=== PATIENT | female | born 1965 | race Caucasian/White ===

== ENCOUNTER 2017-06-10 15:35 | Inpatient (IN) | payer SELFPAY ==
--- NOTE | 2017-06-10 15:52 | HP ---
SUPERVISING PHYSICIAN: Chris Harrison M.D. CHIEF COMPLAINT: Generalized abdominal pain. HISTORY OF PRESENT ILLNESS: This is a 51 year-old female patient who saw her primary care physician, Dr. Harrison, about 1 week ago for generalized abdominal pain. Over the last week she has seen him another time as well as had some lab work done. She had a white count of 14.4 and an abdominal ultrasound was done. She saw Dr. Harrison today in clinic to go over her results. Her abdominal ultrasound report per radiology interpretation shows: 1. Gallbladder is contracted with a 1.6 cm stone. No wall thickening or fluid. Tender during scanning, possible cholecystitis. Common bile duct is dilated. No ascites. 2. Steatosis of the liver with no intrahepatic biliary dilation. Smooth capsule. Spleen is unremarkable and pancreas is negative. 3. Bilateral kidneys are unremarkable on ultrasound. Dr. Harrison called Dr. Bernard who suggested that if she could tolerate oral medication she could take po Flagyl and Levaquin at home. If she was unable to or she was having pain, she should be admitted to the hospital for IV fluids as well as IV antibiotics. She was a direct admission from Dr. Harrison's office. PAST MEDICAL HISTORY: 1. Degenerative disc disease. 2. Type 2 diabetes mellitus on oral therapy. 3. Breast cancer diagnosed in 2007. 4. Gastroesophageal reflux disease. 5. Hyperlipidemia. 6. Hypertension. PAST SURGICAL HISTORY: 1. Appendectomy. 2. Bilateral breast reduction. 3. section. 4. Bilateral tubal ligation. CURRENT MEDICATIONS: ALLERGIES: BETADINE, CODEINE SULFATE, DARVOCET, DARVON, DIOVAN, VALIUM, VICODIN. FAMILY HISTORY: Father at age 76 due to coronary artery disease. Mother has hyperlipidemia and low Vitamin D and B12. Brother has diabetes mellitus. Son has rickets. Daughter has Vitamin D and Vitamin B12 deficiency. SOCIAL HISTORY: She lives in [place]. She is . She has 4 children. She currently smokes about 1 pack of cigarettes per day and has for over 30 years. She denies any ETOH or illicit drug use. REVIEW OF SYSTEMS: GENERAL: Negative for chills, fatigue, fever or unintentional weight loss or gain. HEENT: Negative for ear pain, vision disturbances, sore throat or sinus symptoms. RESPIRATORY: Negative for coughing, dyspnea or wheezing. CARDIOVASCULAR: Negative for chest pain, tachycardia or palpitations. GASTROINTESTINAL: Positive for abdominal pain that radiates to the upper right flank area. Also positive for diarrhea. Negative for nausea, vomiting or constipation. GENITOURINARY: Negative for hematuria, dysuria and nocturia. SKIN: Negative for lesions or rashes. NEUROLOGIC: Negative for dizziness, headaches or seizures. PHYSICAL EXAMINATION: VITAL SIGNS: Temperature 97.7, pulse rate 86, blood pressure 150/94, respiratory rate 12, O2 sat is 97% on room air. GENERAL: This is a 51 year-old female patient who is lying in her hospital bed. She is in no acute distress. HEENT: Normocephalic and atraumatic. Pupils are equal and reactive. Oropharynx is clear. NECK: Supple without mass. RESPIRATORY: Essentially clear to auscultation bilaterally. CHEST: There is equal rise and fall of the chest with inspiration and expiration. CARDIOVASCULAR: Regular rate and rhythm. GASTROINTESTINAL: Abdomen is soft, nondistended. It is slightly tender to the right upper quadrant that radiates around to the right upper back. Bowel sounds are positive. EXTREMITIES: No cyanosis, clubbing or edema. NEUROLOGIC: She is awake, alert and oriented times three. LABORATORY: WBCs are 15,000, hemoglobin 15, hematocrit 44.4. Sodium 136, potassium 3.5, chloride 100, BUN 8, creatinine 0.80. Serum osmolality 270. Liver enzymes are within normal limits. We are still awaiting a urinalysis. Blood cultures are pending. RADIOLOGY: Her sonogram report is as per History of Present Illness. All other labs and films have been reviewed via the EMR. ASSESSMENT: 1. Cholelithiasis with an elevated WBC and right upper quadrant abdominal pain. 2. Gastroesophageal reflux disease. 3. Hypertension. 4. Hyperlipidemia. 5. Diabetes mellitus type 2. 6. Low back pain. 7. History of tobacco abuse. PLAN: We will admit the patient to the hospital. We will start her on IV Flagyl and Levaquin. Repeat her labs in the morning. I have also ordered Accu- Cheks every 6 hours with sliding scale insulin. She will be on bowel rest and NPO overnight. I have given her a nicotine patch. I have started her on a PPI for ulcer prophylaxis. Her SCDs will be for DVT prophylaxis. Hopefully tomorrow morning we can advance her diet and if she tolerates food and liquids, we can hopefully send her home tomorrow afternoon with p.o. antibiotics. She has a followup with Dr. Harrison on Thursday. In the meantime, we will continue to monitor the patient closely and followup as needed. Dr. Harrison is the collaborating physician available for consultation. #[id number] [facility]
[2017-06-10] MEDS ORDERED: ACETAMINOPHEN SUPPOSITORY 650 MG PR PRN (16:20)
[2017-06-10] MEDS ORDERED: MORPHINE SULFATE INJ 10 MG/ML VIAL IV PRN (16:20)
[2017-06-10] MEDS ORDERED: DEXTROSE 50% 25 GM/50 ML SYG IV PRN (16:24)
[2017-06-10] MEDS ORDERED: GLUCAGON INJ 1 MG VIAL SUBCU PRN (16:24)
[2017-06-10] MEDS ORDERED: ENOXAPARIN SODIUM 40 MG/0.4 ML SYG SUBCU SCH (16:30)
[2017-06-10] MEDS ORDERED: INSULIN LISPRO 100 UNITS/ML PEN SUBCU SCH (16:30)
[2017-06-10] MEDS ORDERED: PANTOPRAZOLE SODIUM IV 40 MG VIAL IV SCH (16:30)
[2017-06-10] MEDS ORDERED: IV SET AND CAP CHANGE INJ INJ SCH (16:30)
[2017-06-10] MEDS ORDERED: metroNIDAZOLE IV PREMIX 500MG 100 ML IVPB ONE (16:42)
[2017-06-10] MEDS: KCL 20MEQ/D5 1/2NS 1,000 ML IVS PRN (16:58)
[2017-06-10] MEDS: metroNIDAZOLE IV PREMIX 500MG 500 MG in PREMIX BAG 1 BAG IVPB SCH (16:59)
[2017-06-10] MEDS ORDERED: levoFLOXacin 500MG IV 100 ML IVPB ONE (18:09)
[2017-06-10] MEDS: levoFLOXacin 500MG IV 500 MG in PREMIX BAG 1 BAG IVPB SCH (18:11)
[2017-06-10] MEDS ORDERED: NICOTINE PATCH 21 MG TD SCH (20:00)
[2017-06-10] MEDS: MORPHINE SULFATE INJ 10 MG/ML VIAL IV PRN (20:10)
[2017-06-11] MEDS: MORPHINE SULFATE INJ 10 MG/ML VIAL IV PRN ×4 (00:18→18:20)
[2017-06-11] MEDS: INSULIN LISPRO 100 UNITS/ML PEN SUBCU SCH ×5 (00:21→21:25)
[2017-06-11] MEDS ORDERED: metroNIDAZOLE IV PREMIX 500MG 100 ML IVPB ONE ×3 (01:25→17:10)
[2017-06-11] MEDS: SODIUM CHLORIDE 0.9% (FLUSH) 10 ML SYG IV PRN ×5 (01:27→18:22)
[2017-06-11] MEDS: metroNIDAZOLE IV PREMIX 500MG 500 MG in PREMIX BAG 1 BAG IVPB SCH ×3 (01:27→17:15)
[2017-06-11] MEDS: ONDANSETRON INJ 4 MG/2 ML VIAL IV PRN ×4 (02:19→20:45)
[2017-06-11] MEDS: SODIUM CHLORIDE 0.9% (FLUSH) 10 ML SYG IV SCH ×2 (03:30→08:28)
[2017-06-11] MEDS: KCL 20MEQ/D5 1/2NS 1,000 ML IVS PRN ×2 (03:54→12:53)
[2017-06-11] MEDS: ENOXAPARIN SODIUM 40 MG/0.4 ML SYG SUBCU SCH (09:31)
[2017-06-11] MEDS ORDERED: DEXTROSE 50% 25 GM/50 ML SYG IV PRN (12:04)
[2017-06-11] MEDS ORDERED: GLUCAGON INJ 1 MG VIAL SUBCU PRN (12:04)
[2017-06-11] MEDS ORDERED: NON-FORMULARY MEDICATION 1 EA MIS (Lisinopril & Hydrochlorothiazi [Lisinopril/Hctz 10-12.5 PO SCH (12:15)
[2017-06-11] MEDS: LISINOPRIL 10 MG TAB PO SCH (17:15)
[2017-06-11] MEDS: hydroCHLOROthiazide 12.5 MG CAP PO SCH (17:16)
[2017-06-11] MEDS ORDERED: levoFLOXacin 500MG IV 100 ML IVPB ONE (17:49)
--- NOTE | 2017-06-11 17:50 | PN ---
DATE: 06/11/17 SUPERVISING PHYSICIAN: Chris Harrison M.D. SUBJECTIVE: The patient is lying in bed. She has had multiple episodes of nausea today with some vomiting in spite of Zofran. Denies shortness of breath or chest pain. OBJECTIVE: VITAL SIGNS: She is afebrile, heart rate 82, blood pressure 124/73, respiratory rate 16, O2 sat is 95% on room air. RESPIRATORY: Essentially clear to auscultation bilaterally. CARDIAC: Regular rate and rhythm. ABDOMEN: Soft, nondistended. It is diffusely tender in the right upper quadrant that extends around to the right flank. There is no rebound tenderness or guarding. NEUROLOGIC: She is awake, alert and oriented times three. LABORATORY: CBC is within normal limits. Chemistries: Sodium 138, potassium 3.7, chloride 104, carbon dioxide 26, BUN 9, creatinine 0.77, glucose 174. Urinalysis is basically within normal limits. Preliminary blood cultures show no growth after 24 hours. All other labs and films have been reviewed via the EMR. ASSESSMENT: 1. Cholelithiasis with an elevated WBC and right upper quadrant abdominal pain. 2. Gastroesophageal reflux disease. 3. Hypertension. 4. Hyperlipidemia. 5. Diabetes mellitus type 2. 6. Low back pain. 7. History of tobacco abuse. PLAN: We will continue present supportive care. Initially I had planned to send the patient home with close followup with Dr. Harrison on 06/15/17 at 11:00 AM, but she has had nausea on and off all afternoon that has not been in relation to her oral intake. She has also vomited several times. I have discussed her case with Dr. Harrison, and I believe at this point we need to keep her 1 more night. Presently will continue on clear liquids and decrease her IV fluids. Will again watch her overnight. She will need to go home on some Levaquin and some Flagyl. She does have an appointment with Dr. Harrison on Thursday at 11:00. She understands that the fluids and the IV antibiotics will help with the pain as well as her prognosis. Plan for discharge tomorrow if she continues to improve. We will continue to follow the patient closely and follow as needed. Dr. Harrison is the collaborating physician available for consultation. #[id number] [facility]
[2017-06-11] MEDS: levoFLOXacin 500MG IV 500 MG in PREMIX BAG 1 BAG IVPB SCH (18:25)
[2017-06-11] MEDS ORDERED: NICOTINE PATCH 21 MG TD SCH (21:00)
[2017-06-11] MEDS ORDERED: amLODIPine BESYLATE 5 MG TAB PO SCH (21:00)
[2017-06-11] MEDS ORDERED: metFORMIN HCL 500 MG TAB PO SCH (21:00)
[2017-06-12] MEDS ORDERED: metroNIDAZOLE IV PREMIX 500MG 100 ML IVPB ONE ×2 (01:03→08:11)
[2017-06-12] MEDS: metroNIDAZOLE IV PREMIX 500MG 500 MG in PREMIX BAG 1 BAG IVPB SCH ×2 (01:15→08:33)
[2017-06-12] MEDS: ONDANSETRON INJ 4 MG/2 ML VIAL IV PRN (01:30)
[2017-06-12] MEDS: KCL 20MEQ/D5 1/2NS 1,000 ML IVS PRN (05:15)
[2017-06-12] MEDS ORDERED: PANTOPRAZOLE SODIUM TAB 40 MG PO SCH (06:30)
[2017-06-12] MEDS: INSULIN LISPRO 100 UNITS/ML PEN SUBCU SCH (07:32)
--- NOTE | 2017-06-12 07:55 | RAD ---
EXAM DESCRIPTION: Abdomen Flat Upright CLINICAL HISTORY: abd pain COMPARISON: None. FINDINGS: AP supine and upright views of the abdomen show a nonspecific, nonobstructive bowel gas pattern with no evidence for free intraperitoneal air. No air-filled dilated loops of small bowel are seen. No significant air-fluid levels are identified. No obvious organomegaly is seen. No abnormal calcifications are seen in the expected location of the renal collecting systems. Single view of the chest shows cardiac silhouette and pulmonary vasculature to be within normal limits. Lungs are normally aerated and clear IMPRESSION: Nonspecific abdominal series Electronically signed by: Oliver Knight MD 06/12/2017 7:53 AM [employer]
[2017-06-12] MEDS: hydroCHLOROthiazide 12.5 MG CAP PO SCH (08:33)
[2017-06-12] MEDS: LISINOPRIL 10 MG TAB PO SCH (08:33)
[2017-06-12] MEDS: ENOXAPARIN SODIUM 40 MG/0.4 ML SYG SUBCU SCH (08:34)
[2017-06-12] MEDS ORDERED: ASPIRIN EC 81 MG TAB PO SCH (09:00)
[2017-06-12 10:28] VITALS: BP 112/74; TEMP 98.8; O2SAT 97
--- NOTE | 2017-06-12 11:28 | DS ---
DISCHARGE DIAGNOSIS: 1. Acute abdominal pain. 2. Chronic cholelithiasis with an an acute exacerbation with abdominal pain, leukocytosis and right upper quadrant abdominal pain, showing some slow improvement with conservative treatment in the hospital. 3. Gastroesophageal reflux disease. 4. History of hypertension. 5. History of hyperlipidemia. 6. Diabetes mellitus, type 2. 7. History of chronic low back pain. 8. History of tobacco abuse. HISTORY OF PRESENT ILLNESS: This 51-year-old, white female is admitted to the hospital from Dr. Harrison's office after one week of worsening abdominal discomfort. The pain is primarily in the epigastric and right upper quadrant region. It is especially aggravated by certain types of foods. Abdominal ultrasound had been performed and showed a 1.6 cm stone, yet no gallbladder wall thickening or fluid present. It was very tender, suggesting the presence of inflammation suggesting cholecystitis. The patient was admitted to the hospital for a course of Flagyl and Levaquin because she was unable to adequately keep oral medications down and had significant discomfort and pain requiring stabilization and treatment. Her diabetes was managed. LABORATORY: White count initially was 15,000 with 70% neutrophils, dropping to 9,800. Chemistries showed potassium 3.5 and was up to 3.7. Glucose was 146 fasting on the day of discharge. Liver enzymes remained within normal limits on two evaluations. Lipase was 28. Urinalysis showed some hematuria, otherwise clear. Blood cultures are negative. Abdominal x-ray showed no acute abdominal findings. HOSPITAL COURSE: The patient was feeling much improved on the morning of discharge. She had had ongoing nausea with gagging and vomiting even up until the day prior to her discharge. GI rest assisted and low-fat diet was introduced and the patient was tolerating it at the time of discharge. She was ready to continue with outpatient followup. PLAN: The patient will be discharged to have followup with Dr. Harrison in the clinic on Thursday next week at 11 AM. She will continue with her home medications with Levaquin and Flagyl in addition. She is to avoid fat in her diet. If significant discomfort or nausea is noted, she is to cut back on her food and continue with plenty of oral fluids. Stay active. Encouraged to stop all smoking. Return if not improving. She may eventually require surgical intervention to assist with the significant ongoing problem with close followup with Dr. Harrison to continue. #[id number] [facility]
== END 2017-06-12 11:54 | disposition home or self-care (01) | DRG 446 ==
LOC: MS 15:35
PROVIDERS: ADMIT Nurse Practitioner Acute Care; ATTEND Emergency Medicine
DX: K80.80 Other cholelithiasis without obstruction (principal); K76.0 Fatty (change of) liver, not elsewhere classified; E11.9 Type 2 diabetes mellitus without complications; K21.9 Gastro-esophageal reflux disease without esophagitis; E78.5 Hyperlipidemia, unspecified; I10 Essential (primary) hypertension; F17.210 Nicotine dependence, cigarettes, uncomplicated; G89.29 Other chronic pain; M54.5 Low back pain; Z85.3 Personal history of malignant neoplasm of breast; Z79.84 Long term (current) use of oral hypoglycemic drugs; Z88.5 Allergy status to narcotic agent; Z88.8 Allergy status to other drugs, medicaments and biological substances

== ENCOUNTER → 2017-06-10 | Outpatient (CLI) | payer OTHER ==
--- NOTE | 2017-06-10 12:24 | US ---
EXAM DESCRIPTION: Abdomen,Complete: Ultrasound. CLINICAL HISTORY: 51 years Female, GENERALIZED ABDOMINAL PAIN. Fever and elevated white blood count COMPARISON: None. TECHNIQUE: Standard transabdominal scanning: Two-dimensional and Doppler modes. FINDINGS: Normal caliber of the abdominal aorta. IVC visualized. Pancreas unremarkable. Duct not seen. Increased echogenicity of the liver. Long axis of the right lobe 14.8 cm. No intrahepatic biliary dilatation or focal lesions. Normal hepatopedal flow of the portal vein. Smooth capsule. No ascites. Gallbladder contracted. Large echogenic stone with acoustic shadowing measuring 1.6 cm. No wall thickening or fluid. Common bile duct 9.1 mm. Normal echogenicity of the right kidney with normal cortical thickness and vascularity. No hydronephrosis. Long axis is 10.3 cm. Normal echogenicity of the spleen with long axis XII.7 cm. No fluid in the splenorenal fossa. Long axis of the left kidney 11.8 cm. Normal echogenicity and thickness of the cortex. Normal vascularity. No hydronephrosis. Proximal ureters not seen bilaterally. IMPRESSION: 1. Gallbladder is contracted with 1.6 cm stone. No wall thickening or fluid. Tender during scanning, possible cholecystitis. Common bile duct dilated. No ascites. 2. Steatosis of the liver with no intrahepatic biliary dilatation. Smooth capsule. Spleen unremarkable. Pancreas negative. 3. Bilateral kidneys are unremarkable on ultrasound. Electronically signed by: Moris Patton MD 06/10/2017 12:24 PM [employer]IDENT
== END ==
LOC: US 09:48
PROVIDERS: ATTEND Family Medicine
DX: R10.84 Generalized abdominal pain (principal); K80.11 Calculus of gallbladder with chronic cholecystitis with obstruction; K76.0 Fatty (change of) liver, not elsewhere classified

== ENCOUNTER → 2019-04-25 | Outpatient (CLI) | payer OTHER ==
--- NOTE | 2019-04-25 13:38 | RAD ---
EXAM DESCRIPTION: Chest,2 Views CLINICAL HISTORY: SHORTNESS OF BREATH COMPARISON: None TECHNIQUE: PA/lateral FINDINGS: There is no acute appearing cardiac or pulmonary abnormality. Heart size is normal with normal pulmonary vascularity. No pleural effusion or pneumothorax. Lungs are clear with no consolidating infiltrate. Lateral view shows intact sternum and T-spine. IMPRESSION: No acute process is identified in the chest. Electronically signed by: Estuardo Vasquez MD 04/25/2019 1:36 PM [employer]
== END ==
LOC: RAD 11:28
PROVIDERS: ATTEND Internal Medicine
DX: R06.02 Shortness of breath (principal)